=== PATIENT | female | born 1985 | race African-American/Black ===

== ENCOUNTER 2018-03-16 19:21 | Emergency (ER) | payer MEDICAID | END 2018-03-16 21:23 | disposition left against medical advice (07) | LOC: ER 19:21 | DX: R06.02 Shortness of breath (principal); Z53.21 Procedure and treatment not carried out due to patient leaving prior to being seen by health care provider ==

== ENCOUNTER 2018-03-17 09:16 | Emergency (ER) | payer MEDICAID, OTHER ==
[~2018-03-17] VITALS: Ht 170.2 cm; Wt 71.2 kg
[2018-03-17 09:43] VITALS: BP 144/77
[2018-03-17] MEDS ORDERED: KETOROLAC TROMETH 60MG/2ML VIAL IM ONE (11:00)
== END 2018-03-17 15:41 | disposition home or self-care (01) ==
LOC: ER 09:16
DX: M25.562 Pain in left knee (principal); G89.29 Other chronic pain
CPT/HCPCS: 73562; 96372; 99284; J1885